=== PATIENT | male | born 1985 | race Hispanic/Latino ===

== ENCOUNTER → 2017-11-28 | Outpatient (CLI) | payer BC ==
[~2017-11-28] MED LIST: IOPAMIDOL 370 MG/ML 200 ML INFUS..BTL INJ ONE; SODIUM CHLORIDE 0.9% 50ML 50 ML ONE
--- NOTE | 2017-11-28 19:10 | Diagnostic Imaging Report ---
PROCEDURE:CT PELVIS WITH CONTRAST COMPARISON:None. INDICATIONS:PELIC ABSCESS, PILONIDAL CYST TECHNIQUE:After obtaining the patient's consent, CT images were obtained with non-ionic intravenous contrast material. CONTRAST:100 mL of Isovue-370. Water was given for oral contrast. FINDINGS: GI TRACT: No abnormal distention or wall thickening. The appendix is normal. VESSELS: Unremarkable PELVIC NODES: No lymphadenopathy. PELVIC ORGANS: Unremarkable PERITONEUM/RETROPERITONEUM: No free air or free intraperitoneal fluid. BONES: No aggressive lytic or blastic lesions. SOFT TISSUES: There is extensive soft tissue stranding within the subcutaneous fat overlying the gluteus musculature, the lower lumbar spine, and sacrum. No discrete abscess is identified. CONCLUSION: Extensive soft tissue stranding of the subcutaneous fat overlying the lower back and buttocks. This may represent cellulitis. No discrete abscess is identified. Dictated by: Brendan Pérez M.D. on 11/28/2017 at 19:16 Electronically approved by: Brendan Pérez M.D. on 11/28/2017 at 19:16
== END ==
LOC: CT 17:24
PROVIDERS: ATTEND Surgery
DX: R22.2 Localized swelling, mass and lump, trunk (principal)
CPT/HCPCS: 72193; Q9967

== ENCOUNTER 2019-06-26 15:48 | Emergency (ER) | payer BC, OTHER ==
[~2019-06-26] VITALS: Ht 167.6 cm; Wt 78.9 kg
--- OUTSIDE RECORDS SUMMARY | 2019-06-26 15:50 | XMS REPORT ---
Author [facility] Address Unknown Phone Unavailable Care Team Providers Care Causticiser Name Role Phone BANDAR PANDEY Unavailable Unavailable Problems This patient has no known problems. Allergies, Adverse Reactions, Alerts This patient has no known allergies or adverse reactions. Medications This patient has no known medications. Results Test Description Test Time Test Comments Text Results Atomic Results Result Comments CT PELVIS W 2017-11-28 19:16:00 [facility] [address] [address] Patient Name: PATRICIA PORTER MR #: [id number] : 1985 Age/Sex: 32/M Req #: [id number] [facility] Physician: Ordered by: BANDAR PANDEY MD Report #: [id number] Location: CT Room/Bed: Procedure: [id number] CT/CT PELVIS W Exam Date: 11/28/17 Exam Time: 1800 REPORT STATUS: Signed PROCEDURE: CT PELVIS WITH CONTRAST COMPARISON: None. INDICATIONS: PELIC ABSCESS, PILONIDAL CYST TECHNIQUE: After obtaining the patient's consent, CT images were obtained with non-ionic intravenous contrast material. CONTRAST: 100 mL of Isovue-370. Water was given for oral contrast. FINDINGS: GI TRACT: No abnormal distention or wall thickening. The appendix is normal. VESSELS: Unremarkable PELVIC NODES: No lymphadenopathy. PELVIC ORGANS: Unremarkable PERITONEUM/RETROPERITONEUM: No free air or free intraperitoneal fluid. BONES: No aggressive lytic or blastic lesions. SOFT TISSUES: There is extensive soft tissue stranding within the subcutaneous fat overlying the gluteus musculature, the lower lumbar spine, and sacrum. No discrete abscess is identified. CONCLUSION: Extensive soft tissue stranding of the subcutaneous fat overlying the lower back and buttocks. This may represent cellulitis. No discrete abscess is identified. Dictated by: Junie Pérez M.D. on 11/28/2017 at 19:16 Electronically approved by: Junie Pérez M.D. on 11/28/2017 at 19:16 Dictated By: JUNIE PÉREZ MD 15 Transcribed By: FELICE on 11/28/171915 COPY TO: BANDAR PANDEY MD
[2019-06-26] MEDS ORDERED: ONDANSETRON HCL INJ 2MG/ML 2ML 2 MG/ML VIAL IV STA (16:04)
[2019-06-26] MEDS ORDERED: FAMOTIDINE 20 MG/2 ML VIAL IV ONE (16:15)
--- NOTE | 2019-06-26 16:25 | Diagnostic Imaging Report ---
EXAM: CXR 2 VIEW DATE: 06/26/2019 12:00 AM INDICATION: Chest pain COMPARISON: None FINDINGS: The trachea is midline. The lungs are symmetrically expanded without evidence for large focal consolidation, pneumothorax, or significant pleural effusion. The cardiomediastinal silhouette and pulmonary vasculature are within normal limits. No acute osseous abnormality is identified. The surrounding soft tissues are unremarkable. IMPRESSION: No acute cardiopulmonary process identified. Signed by: Dr. Jann Santoyo MD on 06/26/2019 4:23 PM
[2019-06-26 16:51] LABS: AMPHETAMINES SCREEN,URINE NEGATIVE (NEGATIVE); BENZODIAZEPINES SCREEN,URINE NEGATIVE (NEGATIVE); PHENCYCLIDINE SCREEN,URINE NEGATIVE (NEGATIVE)
== END 2019-06-26 16:49 | disposition home or self-care (01) ==
LOC: FSED 15:48
DX: R07.89 Other chest pain (principal); F41.1 Generalized anxiety disorder; E78.5 Hyperlipidemia, unspecified
CPT/HCPCS: 71046; 80053; 80307; 84484; 85025; 85379; 93005; 99284; J2405

== ENCOUNTER 2020-08-10 16:58 | Emergency (ER) | payer BC, OTHER ==
[~2020-08-10] VITALS: Ht 167.6 cm; Wt 79.5 kg
[2020-08-10] MEDS ORDERED: LEVOTHYROXINE75 MCG PO (17:50)
[2020-08-10] MEDS ORDERED: CEPHALEXIN500 MG PO (18:29)
[2020-08-10 18:46] VITALS: BP 129/69
== END 2020-08-10 18:41 | disposition home or self-care (01) ==
LOC: FSED 18:00
DX: R59.1 Generalized enlarged lymph nodes (principal); E03.9 Hypothyroidism, unspecified
CPT/HCPCS: 99282